=== PATIENT | male | born 1995 | race Caucasian/White ===

== ENCOUNTER 2017-01-12 20:04 | Emergency (ER) | payer OTHER ==
[~2017-01-12] VITALS: Ht 170.2 cm; Wt 69.0 kg
[2017-01-12 22:29] LABS: BASOPHILS % 0.5 % (0.0-2.0); EOSINOPHILS % 0.1 % (0.0-5.0); HEMATOCRIT. 41.2 % (42.0-52.0); HEMOGLOBIN. 13.8 g/dL (14.0-18.0); LYMPHOCYTES % 17.2 % (20.0-50.0); MEAN CORPUSCULAR HEMOGLOBIN 28.7 pg (28.0-32.0); MEAN CORPUSCULAR HGB CONC 33.4 g/dL (31.0-37.0); MEAN CORPUSCULAR VOLUME 85.9 fL (80.0-94.0); MEAN PLATELET VOLUME 8.5 fl (7.4-10.4); MONOCYTES % 6.4 % (2.0-8.0); NEUTROPHILS % 75.8 % (40.0-76.0); PLATELET 313 x1000/uL (130-400); WHITE BLOOD COUNT 9.1 x1000/uL (4.5-11.0)
[2017-01-12 22:35] LABS: CHLORIDE 106 mEq/L (98-107); INDEX HEMOLYSI 1 (1-3); INDEX ICTERIC 1 (1-4); INDEX LIPEMIC 1 (1-3)
[2017-01-12 22:41] LABS: ALANINE AMINOTRANSFERASE 47 IU/L (13-61); ALBUMIN 3.8 g/dL (3.4-5.0); ANION GAP 12; CALCIUM 9.2 mg/dL (8.5-10.1); CARBON DIOXIDE 26 mEq/L (21-32); UREA NITROGEN BLOOD 10 mg/dL (7-21)
[2017-01-12 22:44] LABS: eGFR > 60 mL/min (>60)
[2017-01-12 23:30] VITALS: BP 100/59
== END 2017-01-13 01:31 | disposition home or self-care (01) ==
LOC: ER 21:33
DX: R05 Cough (principal); R53.1 Weakness; R42 Dizziness and giddiness; F41.9 Anxiety disorder, unspecified; R20.2 Paresthesia of skin; Z90.89 Acquired absence of other organs
CPT/HCPCS: 36415; 71010; 80053; 85025; 99285